=== PATIENT | female | born 1985 | race Caucasian/White ===

== ENCOUNTER → 2022-07-20 13:33 | Outpatient (BNVA) | payer OTHER, SELFPAY | PROVIDERS: PCP Internal Medicine; Visit Provider Internal Medicine | DX: S43.002A Unspecified subluxation of left shoulder joint, initial encounter (principal); Y04.2XXA Assault by strike against or bumped into by another person, initial encounter | CPT/HCPCS: 73030; 99203 ==

== ENCOUNTER → 2022-07-27 14:45 | Outpatient (BNVA) | payer OTHER, SELFPAY | PROVIDERS: PCP Internal Medicine; Visit Provider Internal Medicine | DX: S43.002A Unspecified subluxation of left shoulder joint, initial encounter (principal); Y04.2XXA Assault by strike against or bumped into by another person, initial encounter | CPT/HCPCS: 99213 ==

== ENCOUNTER 2022-08-01 14:57 | Outpatient (REF) | payer OTHER, SELFPAY ==
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
== END 2022-08-01 14:58 | disposition home or self-care (01) ==
LOC: HO.MRI 14:57
PROVIDERS: Visit Provider Internal Medicine
DX: M25.512 Pain in left shoulder (principal)
CPT/HCPCS: 73221